=== PATIENT | male | born 1975 | race Caucasian/White ===

== ENCOUNTER 2022-07-10 22:08 | Emergency (ER) | payer MEDICAID, SELFPAY ==
[2022-07-10 22:14] VITALS: BP 146/101; BP 152/92; PULSE 102; PULSE 104; RESP 16; TEMP 36.4; O2SAT 95; O2SAT 98; BMI 22.1
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
== END 2022-07-10 22:54 | disposition home or self-care (01) ==
LOC: HO.ED 22:53
PROVIDERS: Emergency Provider Emergency Medicine
DX: R40.4 Transient alteration of awareness (principal); T40.1X1A Poisoning by heroin, accidental (unintentional), initial encounter; Y92.012 Bathroom of single-family (private) house as the place of occurrence of the external cause
CPT/HCPCS: 99283; 99285